=== PATIENT | female | born 1935 | race Caucasian/White ===

== ENCOUNTER 2019-02-05 07:56 | Outpatient (CLI) | payer MEDICARE, OTHER ==
--- NOTE | 2019-02-05 10:26 | BD ---
DEXA BONE DENSITY STUDY: HISTORY: Postmenopausal. FINDINGS: Lumbar Spine: BMD (g/cm2) L1 0.830 T-Score: -1.5 L2 1.163 T-Score: +1.2 L3 1.183 T-Score: +0.9 L4 1.196 T-Score: +1.2 L1-L4 1.093 T-Score: +0.4 Femoral Neck: 0.603 T-Score: -2.2 Total Femur: 0.882 T-Score: -0.5 Impression: 1. Osteopenia of left femoral neck. Normal bone mineral density of the lumbar spine. 2. Ten-year fracture risk of major osteoporotic fracture is 30% and of a hip fracture is 20%. These fracture probabilities were calculated for an untreated patient. POS: [facility]
== END 2019-02-05 07:57 | disposition home or self-care (01) ==
LOC: BICMAMMO 07:56
PROVIDERS: ATTEND Internal Medicine Rheumatology
DX: M81.0 Age-related osteoporosis without current pathological fracture (principal); M85.852 Other specified disorders of bone density and structure, left thigh
CPT/HCPCS: 77080

== ENCOUNTER 2021-06-05 13:13 | Outpatient (CLI) | payer MEDICARE | END 2021-06-05 13:14 | disposition home or self-care (01) | LOC: BICMAMMO 13:13 | PROVIDERS: ATTEND Internal Medicine Rheumatology | DX: M81.0 Age-related osteoporosis without current pathological fracture (principal); M85.89 Other specified disorders of bone density and structure, multiple sites | CPT/HCPCS: 77080 ==